=== PATIENT | female | born 1970 | race Caucasian/White ===

== ENCOUNTER 2017-08-11 19:18 | Emergency (ER) | payer BC ==
[~2017-08-11] VITALS: Ht 167.6 cm; Wt 72.7 kg
[2017-08-11 19:21] VITALS: BP 179/116; TEMP 98.7
[2017-08-11] MEDS ORDERED: PRILOSEC 20MG20 MG PO (19:25)
[2017-08-11 20:48] VITALS: PULSE 112
== END 2017-08-11 20:48 | disposition home or self-care (01) ==
LOC: COL.ER 19:18
DX: M54.12 Radiculopathy, cervical region (principal); R20.2 Paresthesia of skin; R51 Headache